=== PATIENT | female | born 1955 | race Caucasian/White ===

== ENCOUNTER → 2023-11-27 11:04 | Outpatient (REF) | payer MEDICARE, OTHER, SELFPAY ==
--- NOTE | 2023-11-27 12:54 | PN.DE.MGMTRT ---
Insulin Management
- -
11/27/2023 Diabetes and Insulin Management Consult
Patient referred by Dr. Todd Menjivar due to A1C 13.3%. Prior to our visit she was taking Jardiance 10 mg daily with Amaryl 2 mg daily. PMH includes aneurysm of brain, 12 years ago, [place], diverticulitis and uncontrolled diabetes. Patient states due
to brain aneurysm she has no memory. Her daughter attended the appointment and is very supportive. Patient has never tested her glucose and states she is 'deathly afraid of needles'. Reassured her we would take our time and review each step as
needed.
Patient states she is severely depressed, stays in bed all day gets up for dinner then eats all night. (verified by daughter). She is depressed due to 'everybody has '. Encouraged patient that she cannot change that but her daughter is here
and ready to help her. She does not follow any calorie restriction.
Provided detailed information on serving sizes and number of servings per meal. Requested she try her best to stick to plan given for now until we can gain some level of control. She is agreeable. Provided sample menu with each serving listed.
Provided Contour Next meter and instructed with good return demonstration. Patient to test glucose before each meal and HS and report results to me tomorrow. Instructed on preparation and injection technique for 70/30 insulin, 14 units to be taken
BID with breakfast and dinner. (due to patients aversion to needles will start BID insulin rather than QID). Good return demonstration. Also provided printed instructions with pictures for each step of insulin injection.
Patient to check glucose before dinner and HS tonight, take 14 units 70/30 with dinner and report readings in AM tomorrow. Encouraged patient to start to take a walk daily at least 10 minutes.
Prescriptions for insulin, pen needles, test strips and lancets sent to patient preferred pharmacy.
Diabetes History
- -
Type of Diabetes: 2 requiring insulin
Pre-Admission Diabetes Regimen
Insulin Pump Settings
IP Diabetes Regimen
Patient Education
== END ==
LOC: DES 11:04
PROVIDERS: ATTENDING PHYSICIAN Family Medicine
DX: E11.9 Type 2 diabetes mellitus without complications (principal)
CPT/HCPCS: 99078

== ENCOUNTER → 2023-12-27 12:29 | Outpatient (REF) | payer MEDICARE, OTHER, SELFPAY | LOC: HWRAD 12:29 | PROVIDERS: ATTENDING PHYSICIAN Otolaryngology; FAMILY PHYSICIAN Nurse Practitioner Acute Care | DX: R05.3 Chronic cough (principal) | CPT/HCPCS: 71046 ==

== ENCOUNTER 2024-10-11 15:07 | Emergency (ER) | payer MEDICARE, OTHER, SELFPAY ==
[2024-10-11 15:26] VITALS: BP 166/91
[2024-10-11 15:55] LABS: Urine Character Clear (Clear)
[2024-10-11 16:02] LABS: Hematocrit 39.8 % (37.0-47.0); Hemoglobin 13.5 g/dL (12.0-16.0); Mean Corp Hgb Conc. 33.9 g/dL (33.0-37.0); Mean Corpuscular Volume 89.6 fL (81.0-99.0); Nucleated Red Blood Cells % 0 %; Platelet Count 331 10^3/uL (130-400); Red Cell Dist. Width 13.4 % (11.5-14.5)
[2024-10-11 16:08] LABS: ALT (SGPT) 13 U/L (0-35); AST (SGOT) 25 U/L (14-36); Albumin 4.3 g/dl (3.5-5.0); Alkaline Phosphatase 74 U/L (38-126); Blood Urea Nitrogen 15 mg/dl (7-17); Calcium 9.6 mg/dl (8.4-10.2); Carbon Dioxide 22 mmol/L (22-30); Chloride 108 mmol/L (98-107); Glucose 163 mg/dl (70-99); Lipase 59 U/L (23-300); Potassium 4.0 mmol/L (3.5-5.1); Sodium 137 mmol/L (135-145); Total Protein 7.2 g/dl (6.3-8.2); eGFR > 60.00
[2024-10-11 16:28] LABS: Urine Red Blood Cell 0-2 /HPF (0-2); Urine White Cell 0-2 /HPF (0-5)
[2024-10-11 18:24] VITALS: BMI 34.5
[2024-10-11 18:26] VITALS: BP 139/89
[2024-10-11] MEDS: TORADOL 15 MG IV (18:34)
[2024-10-11 19:00] VITALS: BP 150/68
--- NOTE | 2024-10-11 19:57 | ED.GENMED ---
History of Present Illness
General
Chief Complaint: Abdominal Pain
Source: patient
Exam Limitations: none
Time Seen by Provider: 10/11/24 18:10
Nursing documentation reviewed up to this point in time: agreed with
History of Present Illness
History of Present Illness:
69-year-old male with past ministry of hypertension hyperlipidemia, seizure disorder, previous brain aneurysm presenting to the emergency department today for concerns of left lower quadrant abdominal pain progressive over the past week. Feels
similar to previous episodes of diverticulitis. Denies any nausea vomiting diarrhea or fevers.
Past History
Past History
ED Past Medical History: HTN, Hypercholesterolemia, Psychiatric (Anxiety and depression) and Other (Recent cerebral aneurysm with subarachnoid hemorrhage.)
ED Past Surgical History: Brain (Craniotomy for clipping of cerebral aneurysm)
Social History
Tobacco: Non-smoker
Alcohol: None
Drug: None
Personal: Partner
Living: with family
Employment: Employed
Family History
Family History: Other (Noncontributory)
Review of Systems
Review of Systems
Allergies reviewed?: Yes
All Other Systems: ROS reviewed and negative except as documented in HPI and ROS
Phy Exam
Physical Exam
Physical Exam:
GENERAL: Alert , in no apparent distress
EYE: pupils equal and reactive
NECK: Supple, no significant adenopathy.
ENT: o/p clr, mmm.
CARDIAC: Regular rate and rhythm .
LUNGS: Clear breath sounds bilaterally, no acute respiratory distress, no wheezes/rales/rhonchi
ABDOMEN: Reproducible pain in the left lower quadrant otherwise soft abdomen.
NEUROLOGICAL: Alert and oriented, no focal neuro deficits
SKIN: Warm and dry, skin intact.
MUSCULOSKELETAL: No edema, well perfused.
PSYCH: Normal and appropriate interaction.
Course
Orders/Labs/Results
Orders:
Orders
10/11/24 15:42
Complete Blood Count/With Diff Urgent
Comprehensive Metabolic Panel Urgent
Lipase Urgent
10/11/24 15:49
Urinalysis Reflex To Culture Urgent
Date Specimen was Collected: 10/11/24
Time Specimen was Collected: 15:32
Urine Microscopic Reflex Cult Urgent
10/11/24 18:20
CT Abd/Pel (IV only)-DH only Urgent
Comment:
Reason For Exam: llq pain
Ketorolac [Toradol] 15 mg IV NOW STA
10/11/24 21:50
Amoxicillin 875 mg/Clav 125 mg [Augmentin 875 mg/125 mg] 1 tablet PO NOW STA
Abnormal Lab Results
10/11/24 10/11/24
15:42 15:49
MPV 10.8 H fL
(7.4-10.4)
Absolute Monos (auto) 0.8 H 10^3/uL
(0.1-0.6)
Lymphocytes % 17.5 L %
(20.5-51.1)
Monocytes % 9.7 H %
(1.7-9.3)
Chloride 108 H mmol/L
(98-107)
Glucose 163 H mg/dl
(70-99)
Urine Glucose 4+ A
(Negative)
Urine Albumin (Reflex) 2+ A
(Neg - Trace)
10/11/24 15:42
10/11/24 15:42
Vital Signs
Initial and Last Documented VS:
Initial Vital Signs
Temp Pulse Resp BP Pulse Ox
98.9 F 82 16 166/91 94
10/11/24 15:26 10/11/24 15:26 10/11/24 15:26 10/11/24 15:26 10/11/24 15:26
Last Documented Vital Signs
Temp Pulse Resp BP Pulse Ox
98.9 F 82 16 139/89 95
10/11/24 15:26 10/11/24 15:26 10/11/24 15:26 10/11/24 18:26 10/11/24 19:59
MDM/Problems Addressed
MDM/Problems Addressed:
69-year-old female presenting to the emergency department today with left lower quadrant abdominal pain progressive over the past week. On arrival hypertensive otherwise vital signs are normal. Labs without acute abnormalities. Patient does have
reproducible pain to left lower quadrant plan for CT scan for further assessment. CT scan confirming uncomplicated diverticulitis. Plan to treat with antibiotic and outpatient treatment. Return precautions given.
*Pulse Oximetry
SaO2: 95
Oxygen Mode of Delivery: Room air
Patient hypoxic: no (95)
*Critical Care Note
Total Time (30-74mins, 75-104mins- exclusive of procedures): Not Applicable
ED Attending Note
-
Portions of this chart may have been created with voice recognition software.� Occasional wrong word or��sound alike� substitutions may have occurred due to the inherent limitations of voice recognition software.
Discharge Plan
Departure
Patient Disposition: Home (Routine Discharge)
Date of Disposition: 10/11/24
Time of Disposition: 21:52
Patient with high blood pressure during this ER visit?: No
Condition: Good
Covid-19: Not Applicable
Discharge Problem:
Diverticulitis
Instructions: Diverticulitis (DC)
Prescriptions:
New
amoxicillin-pot clavulanate 875-125 mg tablet
1 tab PO BID 7 Days Qty: 14 0RF
No Action
Co Q-10
400 mg PO DAILY
Lexapro
20 mg PO DAILY
Norvasc:
5 mg PO DAILY
Pantethine
450 mg PO HS
Trilipix Dr
135 mg PO DAILY
Ultimate [place]
2,000 mg PO DAILY
Vitamin D3
2,000 units PO DAILY
Xanax:
0.5 mg PO PRN PRN (Reason: anxiety)
Antivert
12.5 mg PO PRN PRN (Reason: vertigo)
Fioricet:
1 mg PO PRN PRN (Reason: headache/pain)
Patient Comments:
50mg/325mg/40mg
Lodine
400 mg PO PRN PRN (Reason: back pain)
Vicodin 5-500 Tablet
1 tab PO PRN PRN (Reason: back pain)
metoprolol succinate 25 MG tablet extended release 24 hr
25 mg PO DAILY
metronidazole 500 MG tablet
500 mg PO TID Qty: 30 0RF
levofloxacin 500 MG tablet
500 mg PO DAILY Qty: 10 0RF
ondansetron 4 MG tablet,disintegrating
4 mg PO TIDPRN PRN (Reason: NAUSEA) Qty: 20 0RF
hydrocodone-acetaminophen [Vicodin] 1 EACH tablet
1 ea PO Q4 PRN (Reason: pain) Qty: 14 0RF
(DME) Contour Next Test Strips Strip
Qty: 200 0RF
Rx Instructions:
Test before each meal and HS As Directed
E11.65
(DME) pen needle, diabetic [BD Ultra-Fine Amaya Pen Needle] 32 gauge x 5/32' Needle
Qty: 200 0RF
Rx Instructions:
Take 14 units with breakfast and 14 units with dinner. Wait 10 minutes to eat after injection
E11.65
(DME) lancets [Color Lancets] 21 gauge Misc
Qty: 200 0RF
Rx Instructions:
Test before each meal and HS As Directed
E11.65
insulin lispro protamin-lispro [Humalog Mix 75-25 KwikPen] 100 unit/mL (75-25) Insulin Pen
14 unit SC BID Qty: 5 0RF
Rx Instructions:
Take insulin 10 minutes before eating breakfast and dinner
E11.65
Referrals:
Anuj Abraham MD [Active, Gastroenterology] - Follow up in 1 week
Todd Menjivar MD [Family Provider, Family Practice]
Activity Restrictions/Additional Instructions:
You came to the emergency department today with concerns of abdominal discomfort. You are found to have diverticulitis. Please slowly progress your diet and take the prescribed antibiotic. Return for any worsening, new or concerning symptoms.
Interventions
Interventions:
*Risk Screen - Suicide Last Done: 10/11/24 15:26
*General Assessment Last Done: 10/11/24 18:27
*Neglect/Abuse Screening Last Done: 10/11/24 15:26
*ED- Fall Risk Assessment Last Done: 10/11/24 18:27
*ED COVID-19 Vaccine History Last Done: 10/11/24 18:27
[facility] Assessment Last Done: 10/11/24 18:27
Discharge Date and Time
Print Language: VIET[place]ESE
[2024-10-11 20:35] VITALS: BP 148/69
[2024-10-11 21:00] VITALS: BP 135/60
[2024-10-11] MEDS: AUGMENTIN 875 MG/125 MG 1 TABLET PO (22:04)
== END 2024-10-11 22:14 | disposition home or self-care (01) ==
LOC: EMR 15:07
PROVIDERS: Emergency Medicine; EMERGENCY PHYSICIAN Student in an Organized Health Care Education/Training Program; FAMILY PHYSICIAN Family Medicine
DX: K57.32 Diverticulitis of large intestine without perforation or abscess without bleeding (principal); I10 Essential (primary) hypertension; E78.00 Pure hypercholesterolemia, unspecified; G40.909 Epilepsy, unspecified, not intractable, without status epilepticus; F41.9 Anxiety disorder, unspecified; F32.A Depression, unspecified; Z86.79 Personal history of other diseases of the circulatory system; Z98.890 Other specified postprocedural states
CPT/HCPCS: 99284; 96374; 74177; 80053; 81003; 81015; 83690; 85025; Q9967

== ENCOUNTER → 2024-10-23 13:07 | Outpatient (REF) | payer MEDICARE, OTHER, SELFPAY | LOC: HWWDC 13:07 | PROVIDERS: ATTENDING PHYSICIAN Family Medicine | DX: Z12.31 Encounter for screening mammogram for malignant neoplasm of breast (principal) | CPT/HCPCS: 77063; 77067 ==

== ENCOUNTER 2024-11-07 12:35 | Emergency (ER) | payer MEDICARE, OTHER, SELFPAY ==
[2024-11-07 12:41] VITALS: BP 182/112
[2024-11-07 13:10] LABS: Hematocrit 44.2 % (37.0-47.0); Hemoglobin 14.7 g/dL (12.0-16.0); Mean Corp Hgb Conc. 33.3 g/dL (33.0-37.0); Mean Corpuscular Volume 90.2 fL (81.0-99.0); Nucleated Red Blood Cells % 0 %; Platelet Count 385 10^3/uL (130-400); Red Cell Dist. Width 13.6 % (11.5-14.5)
[2024-11-07 13:18] LABS: ALT (SGPT) 12 U/L (0-35); AST (SGOT) 19 U/L (14-36); Albumin 4.8 g/dl (3.5-5.0); Alkaline Phosphatase 78 U/L (38-126); Blood Urea Nitrogen 14 mg/dl (7-17); Calcium 10.2 mg/dl (8.4-10.2); Carbon Dioxide 25 mmol/L (22-30); Chloride 109 mmol/L (98-107); Glucose 129 mg/dl (70-99); INR 0.96; PT 13.1 Sec (11.4-14.6); Potassium 4.1 mmol/L (3.5-5.1); Sodium 143 mmol/L (135-145); Total Protein 8.0 g/dl (6.3-8.2); eGFR > 60.00
[2024-11-07 13:19] LABS: APTT 25.0 Sec (23.4-35.0)
--- NOTE | 2024-11-07 14:30 | ED.GENMED ---
History of Present Illness
General
Chief Complaint: Eye Problems
Time Seen by Provider: 11/07/24 14:30
History of Present Illness
History of Present Illness:
FOCUSED PAST MEDICAL HISTORY
- The patient has history of high blood pressure, diabetes, and hyperlipidemia
REVIEW OF OLD RECORDS
- The patient was seen here 1 month ago diagnosed with diverticulitis managed as an outpatient
Note:
CHIEF COMPLAINT(S)
Right eye discomfort and facial rash for three days.
HISTORY OF PRESENT ILLNESS
The patient is a 69-year-old female with a past medical history significant for a cerebral aneurysm 11 years ago, for which she has a titanium clamp installed, presents with right eye discomfort and rash on the right side of her face for three days.
The patient initially experienced a sensation aj to a foreign body or corneal abrasion in her right eye. This morning, the discomfort worsened, making it difficult to touch the affected area. Upon examination, tenderness and a lumpy, red rash were
noted on the right side of the face. The erythematous eye is accompanied by blurred vision in the right eye, with the conjunctiva appearing red.
Given the unilateral presentation and skin sensitivity, the likelihood of herpes zoster (shingles) affecting the ophthalmic distribution is considered. The patient reports that she had chickenpox in childhood, which supports the assessment of
shingles as the virus classically reactivates in such a pattern. To rule out intracranial involvement given her history, a CT scan of the brain was ordered.
PAST MEDICAL AND SURIGICAL HISTORY
- Cerebral aneurysm treated with a titanium clamp 11 years ago.
- History of migraines.
MEDICATIONS
- Humalog
- Jardiance
- Keppra
- Trileptal
- Lexapro
- Toprol
- Norvasc
- Pravastatin
- Xanax
- Aspirin (baby aspirin)
PHYSICAL EXAM
General: Alert, no acute distress.
Skin: Warm, dry. Notable lumpy, erythematous rash on the right side of the scalp anteriorly above the hairline.
Head: Normocephalic, atraumatic.
Neck: Supple, trachea midline.
Eye, Ears, Nose, Mouth, and Throat:
- Oral mucosa moist.
- Right eye: Mild conjunctival injection, reports some right sided blurred vision. No fluorescein uptake on fluorescein exam.
- Notable tenderness over the rash area on the right side of the scalp but well above the eye.
Cardiovascular: Normal peripheral perfusion, no edema.
Respiratory: Respirations are non-labored.
Gastrointestinal: Abdomen nondistended.
Neurological: Alert and oriented to person, place, time, and situation, no focal neurological deficit observed.
Psychiatric: Cooperative, appropriate mood and affect.
PROBLEM LIST
Acute:
1. Right facial rash with eye involvement, suspected shingles.
2. Right eye blurred vision and redness.
3. History of cerebral aneurysm with titanium clip.
Chronic:
1. Diabetes (Insulin-dependent)
2. Hypertension
3. Epilepsy
4. Depression
PLAN
1. Obtain a CT scan of the brain to rule out acute complications given the patients history.
2. Start antiviral therapy with Valacyclovir (Valtrex) to treat suspected shingles.
3. Apply topical ophthalmic numbing drops and stain the right eye to evaluate for potential corneal involvement.
4. Monitor for any worsening symptoms; advise follow-up for reassessment of the rash and eye condition.
DIFFERENTIAL DIAGNOSIS
The differential diagnosis includes, in no particular order and is not limited to:
1. Herpes Zoster (Shingles) involving the ophthalmic branch.
2. Corneal abrasion or foreign body.
3. Conjunctivitis secondary to viral infection.
4. Migraine-associated symptoms.
5. Trigeminal neuralgia.
6. Allergic reaction.
7. Cellulitis.
8. Glaucoma.
9. Subarachnoid hemorrhage.
10. Cluster headache.
RADIOLOGY
- Given patient's history, CT imaging obtained.
LABS
- CBC normal, chemistries unremarkable with exception of slightly elevated glucose 129 similar to prior
UPDATE
-SUMMARY OF ENCOUNTER
The patient, a 69-year-old female, presented to the emergency department with right eye discomfort and a facial rash, symptoms indicative of herpes zoster (shingles) affecting the ophthalmic branch. She reported blurred vision in her right eye and
suffered significant pain when touched lightly on the affected area. A detailed examination including staining the eye ruled out corneal involvement, such as a corneal abrasion or dendritic uptake typical of herpes keratoconjunctivitis. The eye was
slightly red, but no corneal damage was observed. A CT scan of the brain was conducted due to the patient�s history of a cerebral aneurysm with a titanium clip, and we are awaiting the radiologists official interpretation. There are no signs of
brain involvement noted. Despite a history of receiving the shingles vaccine, shingles remains the primary diagnosis given the clinical presentation. The patient received a dose of valacyclovir (Valtrex) in the emergency department with a follow-up
prescription for additional antiviral therapy. Further consultation with an roll cleaner was advised due to the patients blurred vision and potential eye involvement.
DISPOSITION
Pending discharge after receiving the radiologists confirmation that the CT scan shows no acute findings.
ASSESSMENT
Suspected shingles affecting the ophthalmic branch with secondary viral conjunctivitis. No corneal involvement or signs of dendritic uptake.
EMERGENCY TREATMENTS ADMINISTERED
A dose of valacyclovir (Valtrex) was administered.
PLAN
Initiate antiviral therapy with valacyclovir (Valtrex) for a week. Await the radiologists report on the CT scan. Recommend follow-up with an roll cleaner, providing contact information for local specialists. Discussed the viral nature of
potential conjunctivitis with the patient and advised on the course the condition might take. Ensure the patient understands to see an roll cleaner if vision issues persist.
INDEPENDENT REVIEW OF LABS AND INTERPRETATION OF TESTS
My independent interpretation of the CT scan shows no acute intracranial abnormalities; awaiting final confirmation from radiology for any discrepancies.
PATIENT EDUCATION AND COUNSELING
The patient was educated about shingles, its potential to affect the eye, and the importance of timely antiviral treatment. Discussed the nature of viral conjunctivitis and the necessity for ophthalmology follow-up should vision changes persist.
Reinforced that vaccination does not completely eliminate the risk of shingles.
FOLLOW-UP INSTRUCTIONS
The patient should follow up with an roll cleaner, and contact information was given for a local specialist. If symptoms persist or worsen, the patient should seek further medical attention.
MEDICATION RECONCILIATION
A prescription for valacyclovir (Valtrex) was provided for thrice daily use. The patient received the initial dose in the emergency department.
MEDICAL DECISION MAKING
-Complexity of Data Reviewed: Chronic conditions affecting care include a history of cerebral aneurysm, migraines, diabetes, hypertension, epilepsy, and depression. Differential diagnosis considerations included herpes zoster involving the
ophthalmic branch, corneal abrasion or foreign body, conjunctivitis secondary to viral infection, trigeminal neuralgia, among others.
-Data:
Category 1
My independent interpretation of a CT scan of the brain. No acute findings noted; awaiting final confirmation.
Category 3
Reviewed patient management and plan with the onsite roll cleaner, ensuring the appropriateness of treatment and need for follow-up.
-Risk:
Consideration of antiviral prescription management. Given the complexity of the case and history, outpatient management with close follow-up was deemed appropriate.
DIAGNOSIS
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
Viral Conjunctivitis - ICD-10: B30.9
Past History
Past History
ED Past Medical History: HTN, Hypercholesterolemia, Psychiatric (Anxiety and depression) and Other (Recent cerebral aneurysm with subarachnoid hemorrhage.)
ED Past Surgical History: Brain (Craniotomy for clipping of cerebral aneurysm)
Social History
Tobacco: Non-smoker
Alcohol: None
Drug: None
Personal: Partner
Living: with family
Employment: Employed
Family History
Family History: Other (Noncontributory)
Phy Exam
Physical Exam
Physical Exam:
See HPI
Course
Orders/Labs/Results
Orders:
Orders
11/07/24 12:44
CT Head W/o Iv Contrast Urgent
Comment:
Reason For Exam: blurry vision right eye, SANCHEZ, lump on head
11/07/24 12:48
Complete Blood Count/With Diff Urgent
Comprehensive Metabolic Panel Urgent
PTT Urgent
Prothrombin Time Urgent
11/07/24 14:53
Valacyclovir HCl [Valtrex] 1,000 mg PO NOW STA
11/07/24 17:54
Acetaminophen [Tylenol] 1,000 mg PO NOW STA
Abnormal Lab Results
11/07/24
12:48
MPV 10.7 H fL
(7.4-10.4)
Absolute Monos (auto) 0.8 H 10^3/uL
(0.1-0.6)
Monocytes % 9.8 H %
(1.7-9.3)
Chloride 109 H mmol/L
(98-107)
Glucose 129 H mg/dl
(70-99)
11/07/24 12:48
11/07/24 12:48
Vital Signs
Initial and Last Documented VS:
Initial Vital Signs
Temp Pulse Resp BP Pulse Ox
36.7 C 79 18 182/112 93
11/07/24 12:41 11/07/24 12:41 11/07/24 12:41 11/07/24 12:41 11/07/24 12:41
Last Documented Vital Signs
Temp Pulse Resp BP Pulse Ox
36.7 C 70 16 164/92 93
11/07/24 12:41 11/07/24 18:30 11/07/24 18:30 11/07/24 18:30 11/07/24 17:01
*Pulse Oximetry
SaO2: 93
Oxygen Mode of Delivery: Room air
Patient hypoxic: no
*Critical Care Note
Total Time (30-74mins, 75-104mins- exclusive of procedures): Not Applicable
ED Attending Note
-
Portions of this chart may have been created with voice recognition software.� Occasional wrong word or��sound alike� substitutions may have occurred due to the inherent limitations of voice recognition software.
Discharge Plan
Departure
Patient Disposition: Home (Routine Discharge)
Date of Disposition: 11/07/24
Time of Disposition: 17:52
Patient with high blood pressure during this ER visit?: Yes
Discharge Problem:
Shingles
Prescriptions:
New
valacyclovir [Valtrex] 1 gram tablet
1,000 mg PO TID Qty: 21 0RF
No Action
metoprolol succinate 25 MG tablet extended release 24 hr
25 mg PO DAILY
levetiracetam [Keppra] 500 mg Tablet
500 mg PO BID
alprazolam [Xanax] 0.5 mg Tablet
0.5 mg PO DAILY PRN (Reason: anxiety)
amlodipine [Norvasc] 10 mg Tablet
10 mg PO DAILY
oxcarbazepine [Trileptal] 600 mg Tablet
600 mg PO TID
azelastine 137 mcg (0.1 %) [place],Non-Aerosol
1 spray INTRANASAL BID
lisinopril 2.5 mg Tablet
2.5 mg PO DAILY
insulin lispro protamin-lispro [Humalog Mix 75-25(U-100)Insuln] 100 unit/mL (75-25) Insulin Pen
30 unit SC DAILY
insulin lispro protamin-lispro [Humalog Mix 75-25(U-100)Insuln] 100 unit/mL (75-25) Insulin Pen
34 unit SC HS
escitalopram oxalate [Lexapro] 20 mg Tablet
20 mg PO DAILY
solifenacin [Vesicare] 5 mg Tablet
5 mg PO DAILY
cholecalciferol (vitamin D3) [Vitamin D3] 50 mcg (2,000 unit) Capsule
50 mcg PO DAILY
fenofibric acid (choline) [Trilipix] 135 mg Capsule,Delayed Release(Dr/Ec)
135 mg PO DAILY
coQ10 (ubiquinol) 200 mg Capsule
400 mg PO DAILY
Jardiance 10 mg Tablet
10 mg PO DAILY
Gemtesa 75 mg Tablet
75 mg PO DAILY
aspirin 81 mg Capsule
81 mg PO DAILY
pantethine 450 mg Capsule
450 mg PO QPM
Ozempic 0.25 mg or 0.5 mg (2 mg/3 mL) Pen Injector
0.5 mg SC QWEEK
Referrals:
Todd Menjivar MD [Family Provider, [facility]]
Activity Restrictions/Additional Instructions:
Take next dose of Valtrex tomorrow. I sent this prescription to your pharmacy. Basic blood work is unremarkable. CAT scan of the brain was obtained and shows no sign of bleeding or ruptured aneurysm. Continue Tylenol for pain.
Interventions
Interventions:
*Risk Screen - Suicide Last Done: 11/07/24 12:41
*General Assessment Last Done: 11/07/24 14:36
*Neglect/Abuse Screening Last Done: 11/07/24 14:36
*ED- Fall Risk Assessment Last Done: 11/07/24 14:36
*ED COVID-19 Vaccine History Last Done: 11/07/24 14:36
*Nursing Disposition Last Done: 11/07/24 18:35
Discharge Date and Time
Discharge Date/Time: 11/07/24 18:35
Print Language: AZERI
[2024-11-07 14:45] VITALS: BMI 34.7
[2024-11-07 15:00] VITALS: BP 150/75
[2024-11-07] MEDS: VALTREX 1000 MG PO (15:14)
[2024-11-07 16:00] VITALS: BP 167/84
[2024-11-07 17:00] VITALS: BP 160/83
[2024-11-07] MEDS: TYLENOL 1000 MG PO (17:59)
[2024-11-07 18:30] VITALS: BP 164/92
== END 2024-11-07 18:35 | disposition home or self-care (01) ==
LOC: EMR 12:35
PROVIDERS: EMERGENCY PHYSICIAN Emergency Medicine; FAMILY PHYSICIAN Family Medicine
DX: B02.30 Zoster ocular disease, unspecified (principal); E11.9 Type 2 diabetes mellitus without complications; E78.00 Pure hypercholesterolemia, unspecified; Z86.79 Personal history of other diseases of the circulatory system
CPT/HCPCS: 99284; 70450; 80053; 85025; 85610; 85730